=== PATIENT | male | born 1945 | race Caucasian/White ===

== ENCOUNTER 2019-11-19 07:28 | Day surgery (SDC) | payer OTHER, MEDICARE ==
[2019-11-18 13:57] LABS: HEMATOCRIT 38.5 % (42.0-54.0); HEMOGLOBIN 12.8 g/dL (13.5-17.5); MCH 30.3 pg (26.0-34.0); MCHC 33.2 g/dL (31.0-37.0); MCV 91.2 fL (80.0-100.0); MEAN PLATELET VOLUME 9.5 fL (7.4-10.4); RBC 4.22 10x6/uL (4.20-6.10); RDW 13.6 % (11.5-14.5); WBC 7.6 10x3/uL (4.8-10.8)
[2019-11-18 14:05] LABS: CALCIUM 8.6 mg/dL (8.5-10.1); CARBON DIOXIDE 27.7 mmol/L (21.0-32.0); CREATININE - SERUM 1.2 mg/dL (0.6-1.3); POTASSIUM - SERUM 3.7 mmol/L (3.5-5.1)
[~2019-11-19] VITALS: Ht 177.8 cm; Wt 84.8 kg
--- NOTE | ~2019-11-19 | OP ---
PATIENT NAME: POONAM HODGSON MEDICAL RECORD: [id number] :47 LOCATION:[facility] ADMISSION DATE: SURGEON: QUINCY MATHUR MD DATE OF OPERATION: 11/19/2019 PREOPERATIVE DIAGNOSES: Lumbar spinal stenosis at L3-L4 and L4-L5 bilaterally. POSTOPERATIVE DIAGNOSES: Lumbar spinal stenosis at L3-L4 and L4-L5 bilaterally. PROCEDURE: Lumbar laminectomy, medial facetectomy and foraminotomy at L3-L4 and L4-L5 with METRx retractor and sublaminar decompression. DESCRIPTION AND TECHNIQUE: After induction of general endotracheal anesthesia, the patient was rolled prone on a Mike frame. Lumbar spine was prepped and draped in usual sterile fashion. Fluoroscopic x-ray and spinal needle localized the L3-L4 interspace. After infiltration of 1:100,000 epinephrine with 1% lidocaine, an incision was made from the spinous process of L3-L5. Then, using the Bovie cautery, this fascia was incised. The spinous processes and lamina of L3, L4 and L5 were exposed in a subperiosteal manner. A Shawn retractor was used to maintain retraction during the procedure. A Midas Maxim drill was used to perform a laminectomy at L3, L4, and L5. Hypertrophied ligamentum flavum was removed with Cloward rongeurs. The spinous processes were undermined and a sublaminar decompression with Midas Maxim drill took place on the opposite side. Hypertrophied ligamentum flavum was removed with Cloward rongeurs. Following this, the dura was decompressed well on both sides. The L3, L4 and L5 nerve roots were decompressed well. Meticulous hemostasis was maintained throughout the wound. Wound was irrigated with copious amounts of Ancef irrigant solution. The retractors removed. Fascia was closed with 2-0 Vicryl suture. The subdermal layer was closed with 3-0 Vicryl suture. The skin was closed with majo. A sterile dressing was applied to the wound. The patient was awakened in good condition and taken to recovery. All counts were reported as correct. Estimated blood loss was minimal. TRANSINT:[id number] Voice Confirmation ID: [id number] DOCUMENT ID: [id number] QUINCY MATHUR MD CC: [id number] DICTATION DATE: 12/07/19708 AGENCY LEGAL COUNSEL: 12/07/19 1032 [facility] 11/19/19 [facility] [address] [id number]
[~2019-11-19 07:28] MED LIST: ALEVE220 MG PO; BAYER CHEWABLE81 MG PO; CELEBREX200 MG PO; CENTRUM MEN'S1 EACH PO; LIPITOR20 MG PO; METFORMIN HCL500 M1 PO; OMEPRAZOLE20 M1 PO; ZYLOPRIM300 MG PO; [UNRECOGNIZED DRUG - CODE] PO
[2019-11-19 08:24] VITALS: BP 134/78; Ht 177.8 cm; Wt 84.8 kg
--- NOTE | 2019-11-19 14:25 | NUR ---
UPON FURTHER ASSESSMENT PATIENT DENIES NUMBNESS/TINGLING TO ANY EXTREMITY. SENSATIONS INTACT.
--- NOTE | 2019-11-19 16:33 | NUR ---
1545-ASSISTED TO RESTROOM.ABLE TO URINATE WITHOUT COMPLICATIONS. SMALL AMOUNT OF RED BLOOD FROM BOTTOM OF INCISION SITE. REMOVED GUAZE,PATTED DRY AND REINFORCED DRY GUAZE,SECURED WITH MEDIPORE TAPE.
--- NOTE | 2019-11-19 16:34 | NUR ---
1610-DRESSING CDI. VSS. DENIES PAIN. VERY PLEASANT. REMOVED IV WITH CATH INTACT,DISPOSED INTO SHARPS,COVERED WITH GUAZE,SECURED WITH MEDIPORE TAPE. REVIEWED POST OPERATIVE INSTRUCTIONS AND FOLLOW UP APPOINTMENT. VERBALIZED UNDERSTANDING.
--- NOTE | 2019-11-19 16:36 | NUR ---
1615-PT DRESSED. DRESSING CDI. ESCORTED OUT VIA W/C WITH SPOUSE AWAITING TO DRIVE HOME.
== END 2019-11-19 16:15 | disposition home or self-care (01) ==
LOC: D.OPS 07:28 → D.PAN 11:15 → D.OPS 16:15
PROVIDERS: Anesthesiology; ATTEND Neurological Surgery
DX: M48.061 Spinal stenosis, lumbar region without neurogenic claudication (principal); M54.16 Radiculopathy, lumbar region; M53.86 Other specified dorsopathies, lumbar region; E78.2 Mixed hyperlipidemia; E11.9 Type 2 diabetes mellitus without complications; I10 Essential (primary) hypertension; Z79.84 Long term (current) use of oral hypoglycemic drugs